=== PATIENT | female | born 1970 | race Two or more races ===

== ENCOUNTER → 2024-10-10 | Outpatient (CLI) | payer MEDICAID, SELFPAY ==
--- NOTE | 2024-10-10 08:53 | XR_ITS ---
Examination: Knee, left , 3 views Technique: Knee AP, lateral, oblique 3 views Date and time of exam: October 10, 2024 0904 hrs. Indications: Left knee pain beginning 2 weeks ago. Findings: Moderate to advanced osteoarthritis narrowing medial joint space Moderate knee effusion No fracture Mild osteoarthritis patellofemoral joint Impression: Moderate to advanced osteoarthritis medial joint space
== END | disposition home or self-care (01) ==
PROVIDERS: PCP Nurse Practitioner Family; Referring Provider Nurse Practitioner Family; Visit Provider Nurse Practitioner Family
DX: M17.12 Unilateral primary osteoarthritis, left knee (principal)
CPT/HCPCS: 73562

== ENCOUNTER 2024-10-25 18:14 | Emergency (ER) | payer MEDICAID, SELFPAY ==
--- NOTE | 2024-10-25 18:24 | XR_ITS ---
Examination: Duplex scan of the lower extremity, unilateral left Date and time of exam: The 1918 hrs. Indications: Left leg pain one month, worse today Technique: Duplex scan of the extremity veins using B-mode/grayscale imaging and Doppler spectral analysis and color flow Attention is directed to internal echogenicity, compression and augmentation involving these veins, color flow assessment, spectral analysis Findings: Major deep venous structures in the extremity demonstrate normal course and caliber. There is no evidence of deep vein thrombosis. Normal color flow and spectral analysis Impression: Negative for DVT..
[2024-10-25 19:40] VITALS: BP 159/98; PULSE 87; RESP 20; TEMP 37; O2SAT 100
[2024-10-25] MEDS: CYCLObenzaPRINE 5 MG TABLET PO (19:54)
[2024-10-25] MEDS: HYDROcodone/APAP 5/325 TABLET 1 TAB PO (19:54)
--- NOTE | 2024-10-25 19:58 | EDNOTE_ITS ---
Lower Extremity Injury RME/HPI General Chief Complaint: Extremity Injury, Lower Stated Complaint: LEFT LEG PAIN/SWELLING/WARMTH Time Seen by Provider: 10/25/24 19:42 Arrival date/time: 10/25/24 18:14 54F with history of HTN presents to ED with 3 weeks of LLE pain/swelling/warm that started from her L knee. Patient denies fall/trauma. Patient walks a lot for work. Patient had XR of knee several weeks ago suggesting moderate OA. Limitations: no limitations Related Data Home Medications ?Medication ?Instructions ?Recorded ?Confirmed No Known Home Medications 05/28/1805/14 Allergies Allergy/AdvReac Type Severity Reaction Status Date / Time No Known Allergies Allergy Verified 05/29/18 08:48 Review of Systems Review of Systems Systems Reviewed: All systems reviewed, normal except as documented Constitutional Constitutional: Reports system reviewed and no additional complaints, except as documented, Denies fever(s) and Denies headache(s) ENT Ears, Nose, Mouth, and Throat: Denies disequilibrium and Denies headache(s) Cardiovascular Cardiovascular: Reports system reviewed and no additional complaints, except as documented, Denies chest pain and Denies dyspnea Respiratory Respiratory: Reports system reviewed and no additional complaints, except as documented, Denies cough and Denies dyspnea Gastrointestinal Gastrointestinal: Reports system reviewed and no additional complaints, except as documented, Denies abdominal pain, Denies nausea and Denies vomiting Musculoskeletal Musculoskeletal: Reports as per HPI, Reports arthralgias and Reports joint swelling Neurologic Neurologic: Reports system reviewed and no additional complaints, except as documented, Denies confusion, Denies disequilibrium and Denies headache(s) Psychiatric Psychiatric: Denies confusion Past Medical History Past Medical History NEUROLOGIC: Negative Neurological Disorders CARDIAC: Positive Angina and Hypertension; Negative Cardiac Disorders or Congestive Heart Failure RESPIRATORY: Negative Chronic Obstructive Pulmonary Disease (COPD) GASTROINTESTINAL: Negative Gastrointestinal Disorders GENITOURINARY: Negative Genitourinary Disorders or Renal Disease REPRODUCTIVE: Positive Previous Pregnancies (a3) MUSCULOSKELETAL: Negative Musculoskeletal Disorders ENDOCRINE: Negative Endocrine Disorders, Diabetes Mellitus Type 1 or Diabetes Mellitus Type 2 HEMATOLOGIC: Negative Blood Disorders OTHER HISTORY: Positive Blood Transfusions; Negative Autoimmune Disease or Blood Transfusion Reaction Family History FAMILY HISTORY: Negative Family Psychiatric Problems, Family Respiratory Disorders, Family Cardiac Disorders, Family Gastrointestinal Problems, Family Cancer, Family Surgery or Family Anesthesia Reaction Surgical History SURGICAL: Positive Section Social History SMOKING STATUS: Never smoker ED Exam General Limitations: Present no limitations General appearance: Present alert and in no apparent distress Head Head exam: Present atraumatic Eye Eye exam: Present normal appearance, PERRL and EOMI ENT ENT exam: Present normal exam, normal oropharynx and mucous membranes moist Neck Neck exam: Present normal inspection, full ROM and trachea midline Chest Chest inspection: Present normal inspection and symmetric chest wall rise Respiratory Respiratory exam: Present normal lung sounds bilaterally Cardiovascular Cardiovascular exam: Present regular rate, normal rhythm and normal heart sounds Abdominal Exam Abdominal exam: Present soft and normal bowel sounds Extremities Exam Extremities exam: Present full ROM Expanded Lower Extremity Exam Knee exam: Present full ROM (L), tenderness and swelling Back Exam Back exam: Present normal inspection and full ROM Neurological Exam Neurological exam: Present alert, oriented X3 and CN II-XII intact Psychiatric Psychiatric exam: Present normal affect and normal mood Skin Skin exam: Present warm, dry, intact and normal color Course Quality Measures none Orders Category Date Time Status Crutches .NOW Care 10/25/24 19:42 Active US venous doppler LE LT Stat Exams 10/25/24 18:24 Completed CYCLObenzaPRINE [Flexeril] Med 10/25/24 19:42 Discontinued 5 mg PO X1 ONE HYDROcodone*/APAP 5/325 [[place] 5/325] Med 10/25/24 19:43 Discontinued 1 tab PO X1 ONE Vital Signs Vital signs: Vital Signs Temperature 98.6 F 10/25/24 19:40 Pulse Rate 87 10/25/24 19:40 Respiratory Rate 20 10/25/24 19:40 Blood Pressure 159/98 H 10/25/24 19:40 Pulse Oximetry (%) 100 10/25/24 19:40 Oxygen Delivery Method Room Air 10/25/24 19:40 O2 at 100% on RA and WNLs Extremity Injury, Lower MDM Narrative MDM Narrative:: 54F with history of HTN presents to ED with 3 weeks of LLE pain/swelling/warm that started from her L knee. Patient denies fall/trauma. Patient walks a lot for work. Patient had XR of knee several weeks ago suggesting moderate OA. Physical exam reveals no gross swelling of LLE. L knee swelling, but ROM mostly intact. Patient is afebrile, calm, and alert. US no DVT. Given meds, crutches, and family counselor. Patient data External records reviewed:: [facility] previous records Clinical information provided by:: patient Social determinants that could affect healthcare access:: none Patient has the following chronic illnesses:: HTN How is presenting disease/condition affected by chronic disease/condition?: uneffected by Evaluation data The following diagnostics were reviewed and interpreted by me:: radiology exam(s) Lab and/or radiology exams considered but not ordered:: ordered Interpretation Summary: above Medications / Prescriptions Medications or Prescriptions considered but not ordered:: ordered Medication administrations:: Medication Administration History Discontinued Medications Hydrocodone Bitart/Acetaminophen (Hydrocodone/Apap 5/325 Tablet) 1 tab PO X1 ONE Stop: 10/25/24 19:44 Last Admin: 10/25/24 19:54 Dose: 1 tab Documented By: MARCOS Cyclobenzaprine HCl (Cyclobenzaprine 5 Mg Tablet) 5 mg PO X1 ONE Stop: 10/25/24 19:43 Last Admin: 10/25/24 19:54 Dose: 5 mg Documented By: MARCOS above Consultations Consultation(s) initiated? (list below): No Diagnosis Extremity Injury, Lower Differential Diagnosis: ankle sprain and strain, acute internal derangement of knee, fracture of femur, fracture of hip, puncture wound of foot, fracture of toe, ankle fracture and other (DVT) Most likely diagnosis given after review of the tests above:: OA Admission Indicated Admission indicated?: not indicated Admission Request Was there a request for admission?: No Disposition Plan Disposition Plan: Discharge Discharge Attestation Discharge Attestation: The patient and all family members were given an opportunity to ask questions and understood the discharge instructions. Discharge instructions specifically effects, indications for sooner follow up or return to the emergency department, and the expected course of current diagnosis. Patient condition: Stable Discharge Plan Plan Patient Disposition: HOME (Self Care) Disposition Comment: Stable Prescriptions/Referrals Prescriptions/Med Rec: No Action No Known Home Medications Referrals: No Primary/Family,Physician [Referring Provider] - In 1 week Problem List Clinical Impression: Knee osteoarthritis Patient/Caregiver Discharge Instructions Education Materials: Osteoarthritis Additional Instructions: Please follow-up with PCP within 24-48 hours and return immediately if symptoms worsen. If problem persists, recommend outpatient PT and/or MRI follow-up. In the meantime, rest, use ice/heat, and/or compression. Print Language: Kuwaiti Stand Alone Forms: Patient Portal Info Letter ANTHONY/ALBERT Supervising Physician ANTHONY/ALBERT Supervising Physician: Dr. Monson
== END 2024-10-25 22:04 | disposition home or self-care (01) ==
PROVIDERS: Emergency Provider Emergency Medicine; PCP Nurse Practitioner Family
DX: M17.12 Unilateral primary osteoarthritis, left knee (principal)
CPT/HCPCS: 93971; 99284; A9270

== ENCOUNTER → 2024-11-14 | Outpatient (CLI) | payer MEDICAID, SELFPAY ==
--- NOTE | 2024-11-14 17:15 | XR_ITS ---
Exam: MRI knee without contrast, left complete Date and time of exam: November 14, 2024 1924 hours INDICATIONS: Injury 3 weeks ago to the knee with pain and swelling Technique: Multiple axial, coronal, and sagittal sections on the knee have been obtained. T2-Weighted sagittal, fat-suppressed images, TR 3,500, TE 62, T2 weighted coronal fat-saturated images, TR 3,500, TE 62 Proton density sagittal sections, TR 1800, TE 31. T-1 weighted coronal images, TR 524, TE 13.0 Findings: Medial meniscus anterior horn is intact. Medial meniscus, body horizontal linear tear communicating inner margin. Posterior horn medial meniscus horizontal linear tear communicating inner margin. Lateral meniscus anterior horn horizontal linear tear Lateral meniscus, body is intact Posterior horn lateral meniscus is intact Anterior cruciate ligament moderate to high-grade sprain Posterior cruciate ligament appears intact. Knee effusion is large. Quadriceps and patellar tendons appear intact. There is no evidence of tendinosis. Inflammatory change or fracture of Hoffa's fat pad is not seen. Medial patellar facet demonstrates moderate thinning. Lateral patellar facet cartilage demonstrates moderate thinning. Trochlear cartilage demonstrates moderate thinning. Marrow signal increase below the intercondylar spines. Medial collateral ligament appears intact. No meniscocapsular separation is seen. Illiotibial band and fibular collateral ligament are intact. Biceps femoris tendons appear intact. Medial femoral condylar articular cartilage demonstrates severe thinning. Lateral femoral condylar articular cartilage demonstratesmoderate thinning. Tibial plateau cartilage demonstrates severe medial thinning. Impression: Medial and lateral meniscus tears Moderate to high-grade sprain anterior cruciate ligament
== END | disposition home or self-care (01) ==
LOC: SMRI 16:46
PROVIDERS: PCP Nurse Practitioner Family; Referring Provider Nurse Practitioner Family; Visit Provider Nurse Practitioner Family
DX: S83.282A Other tear of lateral meniscus, current injury, left knee, initial encounter (principal); S83.242A Other tear of medial meniscus, current injury, left knee, initial encounter; X58.XXXA Exposure to other specified factors, initial encounter
CPT/HCPCS: 73721

== ENCOUNTER → 2025-02-07 | Outpatient (CLI) | payer MEDICAID, SELFPAY ==
--- NOTE | 2025-02-07 10:05 | XR_ITS ---
Examination: Knee, left , 3 views Technique: Knee AP, lateral, oblique 3 views Date and time of exam: February 07, 2025 10:14 AM Comparison October 10, 2024 INDICATIONS: Left knee pain beginning 3 months ago. FINDINGS: Moderate to advanced narrowing medial joint space Severe osteopenia Moderate osteoarthritis patellofemoral joint No fracture Moderate knee effusion IMPRESSION: Moderate to advanced narrowing medial joint space Moderate osteoarthritis patellofemoral joint
== END | disposition home or self-care (01) ==
PROVIDERS: PCP Nurse Practitioner Family; Referring Provider Orthopaedic Surgery; Visit Provider Orthopaedic Surgery
DX: M17.12 Unilateral primary osteoarthritis, left knee (principal); M25.862 Other specified joint disorders, left knee
CPT/HCPCS: 73562

== ENCOUNTER 2025-05-12 11:00 | Outpatient (RCR) | payer MEDICAID, SELFPAY ==
--- NOTE | 2025-04-22 11:48 | PTNOTE_ITS ---
PT OP Initial Eval Patient Information Outpatient Physical Therapy Treatment Date: 04/22/25 Visit Reasons: left knee post op Medical Diagnosis: s83.272d Treatment Dx #1: Left Knee Mobility Deficits Treatment Dx #2: Left Knee Pain Start of Care: 04/22/25 Date of Onset: 04/09/25 Smoking Status Smoking Status: Never smoker Initial Assessment Subjective: Pt is a 54 y/o female s/p left knee arthroscopic surgery 04/09/25 due to meniscal tear since October. Pt mentioned her knee was contracted prior to the surgery and was using crutches intermittently. Pt still has knee pain (8/10) with all activities. Pt has limitation with walking, standing, chores, self care, cooking, cleaning, stairs, and performing recreational activities. Objective: Left Knee AROM: -40 deg to 80 deg Left Knee MMTs: grossly 3-/5 Left Hip MMTs: grossly 3-/5 Muscle Length: Hs tightness SLS: unable Assessment: Pt demonstrate left knee mobility and strength deficits s/p knee surgery leading to difficulty with ADLs. Pt will benefit from physical therapy to increase ROM, strength, and work on ambulation. Short Term and Facilities Maintenance Technician Goals 1) Decrease knee extension lag to -5 deg in 8 wks to be able to have a better gait stationary equipment mechanic 2) Increase knee MMTs grossly to 4/5 in 8 wks to be able to perform squatting activities 3) Increase hip MMTs grossly to 4-/5 in 8 wks to be able to walk more than 30 mins 4) Decrease knee pain to 2/10 in 9 wks to be able to stand more than 30 mins 5) Indep with HEP Treatment Plan 1) Manual Therapy 2) Therapeutic Activities 3) Therapeutic Exercises 4) Modalities (ice, heat) 5) Balance Training 6) Gait Training Frequency and Duration: 2 x wk for 8 wks Certification Dates: 04/22/25 to 07/22/25 Procedure Charges OP PT Eval Mod Complex 30 minutes: Yes
--- NOTE | 2025-04-28 14:41 | PT.ODAYNRPT ---
PT Outpatient Daily Note OP Daily Note Outpatient Physical Therapy Treatment Date: 04/28/25 Visit Reasons: left knee post op Subjective: Pt's knee is painful and stiff. Pt still has trouble with walking. Objective: Please see flow chart for list of ther ex performed Assessment: improved knee flexion and extension AROM post PT session. Post ice helped with knee pain and soreness Plan: Continue with PT Length of Time (minutes) of Treatment: 30 Minutes Procedure Charges Therapeutic Exercise 30 minutes: Yes
--- NOTE | 2025-05-02 12:01 | PTNOTE_ITS ---
PT Outpatient Daily Note OP Daily Note Outpatient Physical Therapy Treatment Date: 05/02/25 Visit Reasons: left knee post op Subjective: Pt is walking a little better but knee is still bent in standing position Objective: Please see flow chart for list of ther ex performed Assessment: continues to improve with knee AROM and demonstrate decrease knee flexion contra cture. Worked on gait today with cues to heel toe. Post ice helped with pain and soreness Plan: Continue with PT Length of Time (minutes) of Treatment: 30 Minutes Procedure Charges Therapeutic Exercise 30 minutes: Yes
--- NOTE | 2025-05-07 11:12 | PT.ODAYNRPT ---
PT Outpatient Daily Note OP Daily Note Outpatient Physical Therapy Treatment Date: 05/07/25 Visit Reasons: left knee post op Subjective: Pt's knee feels stiff. Pt still has difficulty walking to the bathroom first thing in the morning due to pain and stiffness Objective: Please see flow chart for list of ther ex performed Assessment: added LLPS with 3#; patient tolerate stretch well. Pt continues to improve with knee AROM in extension and flexion post PT session Plan: Continue with PT Length of Time (minutes) of Treatment: 30 Minutes Procedure Charges Therapeutic Exercise 30 minutes: Yes
--- NOTE | 2025-05-12 11:31 | PT.ODAYNRPT ---
PT Outpatient Daily Note OP Daily Note Outpatient Physical Therapy Treatment Date: 05/12/25 Visit Reasons: left knee post op Subjective: Pt's knee is better and walking more inside her house with less use of the crutches. Pt does notice ROM improvement. Objective: Please see flow chart for list of ther ex performed Assessment: improving with knee AROM with less pain reported. Pt was able to use sci fit and complete full cycle. Plan: Continue with PT Length of Time (minutes) of Treatment: 30 Minutes Procedure Charges Therapeutic Exercise 30 minutes: Yes
== END 2025-05-13 23:59 | disposition home or self-care (01) ==
LOC: CPTX 11:00
PROVIDERS: PCP Orthopaedic Surgery; Referring Provider Orthopaedic Surgery; Visit Provider Orthopaedic Surgery
DX: M25.562 Pain in left knee (principal); R26.2 Difficulty in walking, not elsewhere classified; S83.272D Complex tear of lateral meniscus, current injury, left knee, subsequent encounter; X58.XXXD Exposure to other specified factors, subsequent encounter
CPT/HCPCS: 97110; 97162

== ENCOUNTER 2025-06-04 10:30 | Outpatient (RCR) | payer MEDICAID, SELFPAY ==
--- NOTE | 2025-05-15 11:12 | PT.ODAYNRPT ---
PT Outpatient Daily Note OP Daily Note Outpatient Physical Therapy Treatment Date: 05/15/25 Visit Reasons: Left knee post op Subjective: Pt's left LE feels fatigue with walking without the crutches. Pt's walking is getting a little better. Objective: Please see flow chart for list of ther ex performed Assessment: ambualtion is improving with patient able to extend knee in stance with less pain and limitation. Pt continues to improve with knee flexion AROM without strap assist. Plan: Continue with PT Length of Time (minutes) of Treatment: 30 Minutes Procedure Charges Therapeutic Exercise 30 minutes: Yes
--- NOTE | 2025-05-19 12:07 | PT.ODAYNRPT ---
PT Outpatient Daily Note OP Daily Note Outpatient Physical Therapy Treatment Date: 05/19/25 Visit Reasons: Left knee post op Subjective: Pt's knee is about the same. Pt still has difficulty with walking and getting her knee straight. Objective: Please see flow chart for list of ther ex performed Assessment: slow progress with knee flexion, however, continue to slowly improve with knee contracture Plan: Continue with PT Length of Time (minutes) of Treatment: 30 Minutes Procedure Charges Therapeutic Exercise 30 minutes: Yes
--- NOTE | 2025-05-22 13:31 | PT.ODAYNRPT ---
PT Outpatient Daily Note OP Daily Note Outpatient Physical Therapy Treatment Date: 05/22/25 Visit Reasons: Left knee post op Subjective: No new complaints.i Objective: Please see flow sheet for ther ex list. Assessment: Pt tolerated interventions well. Plan: Continue with pOC. Length of Time (minutes) of Treatment: 30 Minutes Procedure Charges Therapeutic Exercise 30 minutes: Yes
--- NOTE | 2025-05-28 13:18 | PT.ODAYNRPT ---
PT Outpatient Daily Note OP Daily Note Outpatient Physical Therapy Treatment Date: 05/28/25 Visit Reasons: Left knee post op Subjective: Pt reports L knee is stiff and achy, has been doing HEP. Objective: Please see flow sheet for ther ex list. Assessment: Pt demonstrates poor activity tolerance due to pain response. Plan: Continue with poC. Length of Time (minutes) of Treatment: 30 Minutes Procedure Charges Therapeutic Exercise 30 minutes: Yes
--- NOTE | 2025-05-30 15:15 | PT.ODAYNRPT ---
PT Outpatient Daily Note OP Daily Note Outpatient Physical Therapy Treatment Date: 05/30/25 Visit Reasons: Left knee post op Subjective: No new complaints. Objective: Please see flow sheet for ther ex list. Assessment: Pt instructed on TKE exercise, completed with minimal discomfort. Plan: Continue with pOC. Length of Time (minutes) of Treatment: 30 Minutes Procedure Charges Therapeutic Exercise 30 minutes: Yes
--- NOTE | 2025-06-04 11:36 | PT.ODAYNRPT ---
PT Outpatient Daily Note OP Daily Note Outpatient Physical Therapy Treatment Date: 06/04/25 Visit Reasons: Left knee post op Subjective: Pt reports L knee is doing ok, has good and bad days but overall feels progress is slow. Objective: Please see flow sheet for ther ex list. Assessment: Pt instructed and encouraged to perform HEP heel prop exercise, pt agreed. Plan: Continue with poC. Length of Time (minutes) of Treatment: 30 Minutes Procedure Charges Therapeutic Exercise 30 minutes: Yes
== END 2025-06-13 23:59 | disposition home or self-care (01) ==
LOC: CPTX 10:30
PROVIDERS: PCP Orthopaedic Surgery; Referring Provider Orthopaedic Surgery; Visit Provider Orthopaedic Surgery
DX: M25.562 Pain in left knee (principal); R26.2 Difficulty in walking, not elsewhere classified; S83.272D Complex tear of lateral meniscus, current injury, left knee, subsequent encounter; X58.XXXD Exposure to other specified factors, subsequent encounter
CPT/HCPCS: 97110

== ENCOUNTER 2025-07-07 13:00 | Outpatient (RCR) | payer MEDICAID, SELFPAY ==
--- NOTE | 2025-06-17 10:54 | PTNOTE_ITS ---
PT Outpatient Daily Note OP Daily Note Outpatient Physical Therapy Treatment Date: 06/17/25 Visit Reasons: left knee post op Subjective: Pt is walking better, however, still has pain with bending the knee. Objective: Please see flow chart for list of ther ex performed Assessment: patient can now ambulate with better gait optomechanical technician and able to heel toe. Progressing patient to closed chain exercises with good tolerance Plan: Continue with PT Length of Time (minutes) of Treatment: 30 Minutes Procedure Charges Therapeutic Exercise 30 minutes: Yes
--- NOTE | 2025-06-19 14:05 | PT.ODAYNRPT ---
PT Outpatient Daily Note OP Daily Note Outpatient Physical Therapy Treatment Date: 06/19/25 Visit Reasons: left knee post op Subjective: Pt's knee is better. Pt now is walking longer with less pain. Objective: Please see flow chart for list of ther ex performed Assessment: progressing with knee closed chain exercises with minimal knee pain reported. Pt still exhibit difficulty with full extension in standing due to contracture Plan: Continue with PT Length of Time (minutes) of Treatment: 30 Minutes Procedure Charges Therapeutic Exercise 30 minutes: Yes
--- NOTE | 2025-06-26 14:54 | PT.ODAYNRPT ---
PT Outpatient Daily Note OP Daily Note Outpatient Physical Therapy Treatment Date: 06/26/25 Visit Reasons: left knee post op Subjective: Pt c/o stiff and painful L knee. Objective: Please see flow sheet for ther ex list. Assessment: Pt instructed on terminal knee extension exercise, compensates with excessive trunk flexion, frequent reminders needed for correction. Plan: Continue with POC. Length of Time (minutes) of Treatment: 30 Minutes Procedure Charges Therapeutic Exercise 30 minutes: Yes
--- NOTE | 2025-07-02 10:00 | PT.ODAYNRPT ---
PT Outpatient Daily Note OP Daily Note Outpatient Physical Therapy Treatment Date: 07/02/25 Visit Reasons: left knee post op Subjective: Pt reports L knee is doing ok, mentioned that she walks in her home without crutch. Objective: Please see flow sheet for ther ex list. Assessment: Continued focus on improving ROM, pt continues to have ROm limitations resulting in poor heel strike. Plan: Continue with poC. Length of Time (minutes) of Treatment: 30 Minutes Procedure Charges Therapeutic Exercise 30 minutes: Yes
--- NOTE | 2025-07-07 13:29 | PT.ODAYNRPT ---
PT Outpatient Daily Note OP Daily Note Outpatient Physical Therapy Treatment Date: 07/07/25 Visit Reasons: left knee post op Subjective: Pt reports knee is doing ok, still has pain and sensation that knee wants to pop. Objective: Please see flow sheet for ther ex list. Assessment: Heel strike continues to improve but pt still not able to reach extension WNL. Plan: Continue working on gait. Length of Time (minutes) of Treatment: 30 Minutes Procedure Charges Therapeutic Exercise 30 minutes: Yes
--- NOTE | 2025-07-09 09:44 | PT.ODS1RPT ---
PT OP Progress/Discharge Note Date of Service: 07/09/25 Progress Note/DC Note Progress Note/Discharge Note: Progress Note Patient Information Visit Reasons: left knee post op Medical Diagnosis: [id number] Treatment Dx #1: Left Knee Mobility Deficits Treatment Dx #2: Left Knee Pain Service Continue Service or Discharge: Continue Service Certification Date Certification Dates: 07/09/25 to 10/09/25 Status Subjective: Pt is feeling better, hoever, her knee is still not straight. Pt mentioned she had a follow up appt with surgeon, however, does not know what the plan is moving forward with her knee. Pt mentioned standing, walking, chores, self care, and balance is much better. Objective: Left Knee AROM: -20 deg to 100 deg Left Knee MMTs: grossly 3+/5 Left Hip MMTs: grossly 3/5 SLS: 5 sec Gait Observation: antalgic gait with decrease knee extension in stance and heel strike Assessment: Pt has improved with left knee ROM and strength since starting physical therapy allowing her to start light ADLs, ambulate, and perform chores with less limitation. 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 Plan: Continue with PT/POC and add 12 sessions (2 x wk for 6 wks)
== END 2025-07-13 23:59 | disposition home or self-care (01) ==
LOC: CPTX 13:00
PROVIDERS: PCP Orthopaedic Surgery Adult Reconstructive Orthopaedic Surgery; Referring Provider Orthopaedic Surgery Adult Reconstructive Orthopaedic Surgery; Visit Provider Orthopaedic Surgery Adult Reconstructive Orthopaedic Surgery
DX: M25.562 Pain in left knee (principal); R26.2 Difficulty in walking, not elsewhere classified; S83.272D Complex tear of lateral meniscus, current injury, left knee, subsequent encounter; X58.XXXD Exposure to other specified factors, subsequent encounter
CPT/HCPCS: 97110